=== PATIENT | male | born 1960 | race Caucasian/White ===

== ENCOUNTER 2023-06-23 14:12 | Emergency (ER) | payer OTHER, SELFPAY ==
[2023-06-23 14:14] VITALS: BP 149/90
--- NOTE | 2023-06-23 14:55 | ED.GENMED ---
History of Present Illness
General
Chief Complaint: DVT/Possible Blood Clot
Source: patient
Exam Limitations: none
Time Seen by Provider: 06/23/23 14:18
Nursing documentation reviewed up to this point in time: agreed with
Travel History
Have you had any contact with someone who has COVID-19?: No
Do you have any symptoms of coronavirus? Fever > 100 degrees, chills, cough, shortness of breath, sore throat, loss of taste or smell, muscle aches, or headache?: No
History of Present Illness
History of Present Illness:
63-year-old male with past medical history of prostate cancer presenting to the emergency department today with concerns of concerns of swelling to the right leg and some discomfort to the right inner thigh and some tingling to the right calf
region. Started this morning. Denies any specific injuries to the area symptoms have been improving since this morning. Denies any chest pain shortness of breath nausea vomiting denies any history of blood clots recent trauma surgery
immobilization
Review of Systems
Review of Systems
Allergies reviewed?: Yes
All Other Systems: ROS reviewed and negative except as documented in HPI and ROS
Phy Exam
Physical Exam
Physical Exam:
GENERAL: Alert , in no apparent distress
EYE: pupils equal and reactive
NECK: Supple, no significant adenopathy.
ENT: o/p clr, mmm.
CARDIAC: Regular rate and rhythm .
LUNGS: Clear breath sounds bilaterally, no acute respiratory distress, no wheezes/rales/rhonchi
ABDOMEN: Soft, without focal tenderness, no r/g, no cvat
NEUROLOGICAL: Alert and oriented, no focal neuro deficits
SKIN: Warm and dry, skin intact.
MUSCULOSKELETAL: No edema, well perfused.
PSYCH: Normal and appropriate interaction.
Course
Orders/Labs/Results
Orders:
Orders
06/23/23 14:18
Venous Doppler Lwr Ext Rt [[facility] Venous LOWER Ext RT] Urgent
Comment:
Reason For Exam: right leg pain
Vital Signs
Initial and Last Documented VS:
Initial Vital Signs
Temp Pulse Resp BP Pulse Ox
98.3 F 76 16 149/90 99
06/23/23 14:14 06/23/23 14:14 06/23/23 14:14 06/23/23 14:14 06/23/23 14:14
Last Documented Vital Signs
Temp Pulse Resp BP Pulse Ox
98.3 F 76 16 149/90 99
06/23/23 14:14 06/23/23 14:14 06/23/23 14:14 06/23/23 14:14 06/23/23 14:14
MDM/Problems Addressed
MDM/Problems Addressed:
63-year-old male presenting to the emergency department with concerns of right lower extremity swelling discomfort to the right inner thigh. On examination there is no visible swelling no redness or warmth normal distal pulses no reproducible
tenderness normal strength and range of motion of the lower extremities bilaterally. Normal vital signs no chest pain or shortness of breath. Ultrasound without signs of DVT. No evidence of infection or emergent process at this time. He was
advised for close primary care follow-up in the next 1 to 2 weeks for reassessment and given strict return precautions. Otherwise stable for outpatient management.
*Critical Care Note
Total Time (30-74mins, 75-104mins- exclusive of procedures): Not Applicable
ED Attending Note
-
Portions of this chart may have been created with voice recognition software.� Occasional wrong word or��sound alike� substitutions may have occurred due to the inherent limitations of voice recognition software.
Discharge Plan
Departure
Patient Disposition: Home (Routine Discharge)
Date of Disposition: 06/23/23
Time of Disposition: 15:19
Patient with high blood pressure during this ER visit?: No
Condition: Good
Covid-19: Not Applicable
Discharge Problem:
Leg pain
Instructions: Dependent Edema (DC)
Prescriptions:
No Action
multivitamin 1 EACH tablet
1 ea PO DAILY
glucosamine tomlinson 2KCl-chondroit 1 EACH tablet
1 ea PO DAILY
sennosides [senna] 1 TABLET tablet
1 tab PO BID Qty: 20 0RF
Rx Instructions:
Take twice daily until having regular bowel movements and off narcotic pain medication
acetaminophen 325 MG tablet
650 mg PO Q4HPRN PRN (Reason: pain) 0RF
oxycodone-acetaminophen 5 MG/325 MG tablet
1 tab PO Q4HPRN PRN (Reason: pain) Qty: 8 0RF
Activity Restrictions/Additional Instructions:
You came to the emergency department today with concerns of discomfort and leg swelling to the right side. Here you had an ultrasound that did not show any evidence of deep venous thrombosis. This is very reassuring. Please follow closely with
your primary care doctor within 1 to 2 weeks for reassessment. Return to the emergency department for any worsening, new or concerning symptoms.
Interventions
Interventions:
*General Assessment Last Done: 06/23/23 14:14
*ED COVID-19 Vaccine History Last Done: 06/23/23 14:14
ED- Cardiac Assessment Last Done: 06/23/23 15:17
ED- Pulmonary Assessment Last Done: 06/23/23 15:17
ED-Peripheral Vascular Assessment Last Done: 06/23/23 15:17
ED-Skin Assessment Last Done: 06/23/23 15:17
== END 2023-06-23 15:37 | disposition home or self-care (01) ==
LOC: EMR 14:12
PROVIDERS: EMERGENCY PHYSICIAN Emergency Medicine
DX: M79.604 Pain in right leg (principal); M79.89 Other specified soft tissue disorders; C61 Malignant neoplasm of prostate; Z90.79 Acquired absence of other genital organ(s)
CPT/HCPCS: 99284; 93971

== ENCOUNTER → 2025-04-01 07:21 | Outpatient (REF) | payer OTHER, SELFPAY | LOC: RAD 07:21 | PROVIDERS: ATTENDING PHYSICIAN Nurse Practitioner Adult Health; FAMILY PHYSICIAN Family Medicine | DX: M85.80 Other specified disorders of bone density and structure, unspecified site (principal) | CPT/HCPCS: 77080 ==